=== PATIENT | male | born 1955 | race Caucasian/White ===

== ENCOUNTER 2025-06-17 12:32 | Outpatient (AMB) | payer MEDICARE, SELFPAY ==
--- OUTSIDE RECORDS SUMMARY | 2024-12-29 04:57 | XMS_ITS ---
Author Organization [facility] Address [address] [place], [place] [id number] Care Team Providers Care Surveying Crew Rodman Name Role Phone NANCY RICARDO Primary Care Provider [phone] REASON FOR VISIT refill MEDICATIONS Medication SIG (Take, Route, Fr equency, Duration) Notes Start Date End Date Status Crestor 10 MG 1 tablet Orally Once a day for 90 days 12/29/2024 Active Mounjaro 7.5 MG/0.5ML as directed Subcut aneous once a week for 30 days 2024 Active Encounters Encounter Location Date Provider Diagnosis [facility] [address] [place] [address] 12/29/2024 RICARDO CRUZ PLAN OF TREATMENT Medication Medication Name Sig Start Date Stop Date Notes Crestor 10 MG 1 tablet Orally Once a day for 90 days 12/29/2024 Mounjaro 7.5 MG/0.5ML as directed Subcut aneous once a week for 30 days 2024 Next Appt Details Provider Name:RICARDO MARTINEZ, 07/14/2025 01:00:00 PM, [address] [place], [address],
--- OUTSIDE RECORDS SUMMARY | 2025-01-06 04:27 | XMS_ITS ---
Author Organization [facility] Address [address] [place], [place] [id number] Care Team Providers Care Harness Worker Name Role Phone RICARDO CRUZ Primary Care Provider [phone] REASON FOR VISIT (H)(2) (PHONE) Encounters Encounter Location Date Provider Diagnosis [facility] [address] [place] [address] 01/06/2025 RICARDO CRUZ PLAN OF TREATMENT Next Appt Details Provider Name:RICARDO MARTINEZ, 07/14/2025 01:00:00 PM, [address] [place], [address],
--- OUTSIDE RECORDS SUMMARY | 2025-01-06 13:07 | XMS_ITS ---
Author Organization [facility] Address [address] [place], [place] [phone] Care Team Providers Care Government Affairs Fellow Name Role Phone RICARDO CRUZ Primary Care Provider Encounters Encounter Location Date Provider Diagnosis [facility] [address] [place] [address] 01/06/2025 RICARDO CRUZ PLAN OF TREATMENT Next Appt Details Provider Name:RICARDO MARTINEZ, 07/14/2025 01:00:00 PM, [address] [place], [address],
--- OUTSIDE RECORDS SUMMARY | 2025-01-06 13:08 | XMS_ITS ---
Author Organization [facility] Address [address] [place], [place] [id number] Care Team Providers Care Sports Development Officer Name Role Phone NANCY RICARDO Primary Care Provider [phone] REASON FOR REFERRAL Reason Referral to Dr. Ning colin for CAT scan showing adenopathy Diagnosis 1 Abnormal computerize d axial tomography of chest (R93.89) Referral Organization [facility] Referring Provider First Name RICARDO Referring Provider Last Name NANCY Referring Provider Speciality Internal M edicine Referred Provider HARISH MOREIRA Referred Provider Specialty Pulmonary [facility], [address] [place] [address], [address] [place] [address], P# [phone], F# [phone], Pema OROPEZA NE 02/10/2025 02:38:49 PM > faxed referral to Dr Moreira, f: [phone] Referral Priority Routine REASON FOR VISIT ct PROBLEMS Problem Type ICD Code Onset Dates Problem Status W/U Status Risk SNOMED Code Notes Problem Abnormal computerized axial tomography of chest (R93.89) Active confirmed [id number] Encounters Encounter Location Date Provider Diagnosis [facility] [address] [place] [address] 01/06/2025 RICARDO CRUZ Abnormal computerize d axial tomography of chest R93.89 ASSESSMENTS Encounter Date Diagnosis Assessment Notes Treatment Notes Treatment Clinical Notes Section Notes 01/06/2025 Abnormal computerized axial tomography of chest (ICD-10 - R93.89) PLAN OF TREATMENT Referrals Referral Date Details Referral to Dr. Ning colin for CAT scan showing adenopathy , HARISH MOREIRA Next Appt Details Provider Name:RICARDO MARTINEZ, 07/14/2025 01:00:00 PM, [address] [place], [address], Consultation Request Notes Referral Date Referring Provider Referred Provider Not es 01/06/2025 RICARDO CRUZ, HARISH Woody l to Dr. Moreira for CAT scan showing adenopathy
--- OUTSIDE RECORDS SUMMARY | 2025-01-12 08:33 | XMS_ITS ---
Author Organization [facility] Address [address] [place], [place] [phone] Care Team Providers Care Pacu Nurse Name Role Phone RICARDO CRUZ Primary Care Provider [phone] Gracia office / CT Encounters Encounter Location Date Provider Diagnosis [facility] [address] [place] [address] 01/12/2025 RICARDO CRUZ PLAN OF TREATMENT Next Appt Details Provider Name:RICARDO MARTINEZ, 07/14/2025 01:00:00 PM, [address] [place], [address],
--- OUTSIDE RECORDS SUMMARY | 2025-01-14 06:37 | XMS_ITS ---
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 [address] [place] [address] 01/14/2025 RICARDO CRUZ PLAN OF TREATMENT Next Appt Details Provider Name:RICARDO MARTINEZ, 07/14/2025 01:00:00 PM, [address] [place], [address],
--- OUTSIDE RECORDS SUMMARY | 2025-02-03 04:33 | XMS_ITS ---
Author Organization [facility] Address [address] [place], [place] [phone] Care Team Providers Care Support Clerk Name Role Phone RICARDO CRUZ Primary Care Provider REASON FOR VISIT Fax Info Encounters Encounter Location Date Provider Diagnosis [facility] [address] [place] [address] 02/03/2025 RICARDO CRUZ PLAN OF TREATMENT Next Appt Details Provider Name:RICARDO MARTINEZ, 07/14/2025 01:00:00 PM, [address] [place], [address],
--- OUTSIDE RECORDS SUMMARY | 2025-02-10 06:30 | XMS_ITS ---
Author Organization [facility] Address [address] [place], [place] [phone] Care Team Providers Care Aircraft Cleaner Name Role Phone RICARDO CRUZ Primary Care Provider REASON FOR VISIT (3) insurance letter Encounters Encounter Location Date Provider Diagnosis [facility] [address] [place] [address] 02/10/2025 RICARDO CRUZ PLAN OF TREATMENT Next Appt Details Provider Name:RICARDO MARTINEZ, 07/14/2025 01:00:00 PM, [address] [place], [address],
--- OUTSIDE RECORDS SUMMARY | 2025-02-10 06:34 | XMS_ITS ---
Author Organization [facility] Address [address] [place], [place] [phone] Care Team Providers Care Bowling Ball Finisher Name Role Phone RICARDO CRUZ Primary Care Provider REASON FOR VISIT Losartan refill/low BP MEDICATIONS Medication SIG (Take, Route, Frequency, Duration) Notes Start Date End Date Status Losartan Potassium 50 MG 1 tablet Orally Once a day for 90 days Active Encounters Encounter Location Date Provider Diagnosis [address] [address] 02/10/2025 RICARDO CRUZ PLAN OF TREATMENT Medication Medication Name Sig Start Date Stop Date Notes Losartan Potassium 50 MG 1 tablet Orally Once a day for 90 days Next Appt Details Provider Name:RICARDO MARTINEZ, 07/14/2025 01:00:00 PM, [address] [place], [address],
--- OUTSIDE RECORDS SUMMARY | 2025-02-10 06:41 | XMS_ITS ---
Author Organization [facility] Address [address] [place], [place] [id number] Care Team Providers Care Rod Pointer Name Role Phone RICARDO CRUZ Primary Care Provider REASON FOR VISIT Dr. Moreira referral Encounters Encounter Location Date Provider Diagnosis [facility] [address] [place] [address] 02/10/2025 RICARDO CRUZ PLAN OF TREATMENT Next Appt Details Provider Name:RICARDO MARTINEZ, 07/14/2025 01:00:00 PM, [address] [place], [address],
--- NOTE | 2025-06-17 12:48 | MHC.OFFVIS ---
Vital Signs 06/17/25 12:53 Height 5 ft 9 in Weight 203 lb 14.841 oz BMI 30.1 BP 148/78 H Blood Pressure Location Lt brachial Position Sitting Pulse 67 Pulse Source Pulse Oximeter Pulse Oximetry (%) 96 Oxygen Delivery Method Room Air Intake Visit Reasons: Abnormal CT scan On Site Nurse Required: No Accompanied by: Self / Same As Patient Allergies No Known Allergies Allergy (Verified 06/17/25 12:53) HPI Comments Details: The patient is here for pulmonary evaluation. The patient is a 70-year-old gentleman for an abnormal CT scan. Apparently he was in his usual state health until back in [place] few years back he did undergo a cardiac CT of the chest. The patient was still that some abnormalities were noted. He then followed up with his primary care recently and did undergo over the summer a CT scan of the chest. The CAT scan report was available to us demonstrating lymphadenopathy primarily in the mediastinum. Demonstrating his largest lymph node 1.7 cm. It does not appear that his previous CAT scan was compared to this 1. The patient does not have any evidence of any parenchymal disease or nodular densities that were documented. Overall he is doing good he stays active riding his bike. Denies any respiratory limitations. 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 Denies any other exposure to inorganic dust. He denies any weight loss or night sweats he denies any pleuritis. Overall he feels okay. Will have him undergo blood work. The patient can be assess for different etiologies that can result in the lymphadenopathy. But he understands the lymph nodes although not significantly large need to be followed. If they do increasing size that would have to be sampled. I did give him the option of getting a CAT scan here or CAT scan in [place] when he goes there. But at this point will get the blood work and have the blood work decide for us since he is asymptomatic. REPLACED BY [facility] Medical History (Updated 06/17/25 @ 13:24 by Cylde Moreira MD) Lymphadenopathy, mediastinal Social History (Updated 06/17/25 @ 12:54 by Di Ellis CMA) Patient Tobacco Use Status: Never used Tobacco Review of Systems Const Denies fever(s), Denies night sweats and Denies weight loss Eyes Reports no additional complaints ENT Reports no additional complaints Card Denies chest pain, Denies dyspnea and Denies dyspnea on exertion Resp Denies dyspnea, Denies dyspnea on exertion and Denies wheezing GI Reports no additional complaints Musc Reports no additional complaints Skin/Breast Denies rash Neuro Reports no additional complaints Jake/Lymph Reports no additional complaints Aller/Immun Denies wheezing Physical Exam Vital Signs: Last Vital Signs Pulse 67 06/17/25 12:53 BP 148/78 H 06/17/25 12:53 Pulse Ox 96 06/17/25 12:53 Oxygen Delivery Method Room Air 06/17/25 12:53 BMI result Body Mass Index 30.1 Const General: comfortable HEENT Head: Yes normocephalic Neck Neck: Yes no lymphadenopathy and Yes supple Chest Chest palpation & inspection: normal inspection of the chest Resp Effort & Inspection: normal respiratory effort Auscultation: clear to auscultation bilaterally Cardio Heart sounds: S1 normal heart sound present and S2 normal heart sound present GI Palpation (GI): Soft to palpation Skin General skin exam: no rashes or lesions noted Extrem General: Yes no clubbing, cyanosis or edema Assessment & Plan Assessment & Plan (1) Lymphadenopathy, mediastinal: Code(s): R59.0 - Localized enlarged lymph nodes Category: Medical Plan Mediastinal LN. Would need to review initial CT chest to assess for any progression of the LN. Also need to assess for hilar involvement. Clinically doing well. REC: Bloodwork, if abnormal will request CT chest soon. If bloodwork is stable then ok for him to wait till July to get a CT chest in [place]. F/U Spring 2025 Orders: Orders Lactate Dehydrogenase 06/17/25 R59.0 - Localized enlarged lymph nodes Liver Panel 06/17/25 R59.0 - Localized enlarged lymph nodes Immunoglobulin G Subclasses 06/17/25 R59.0 - Localized enlarged lymph nodes Hypersensitive Pneumonitis Prf 06/17/25 R59.0 - Localized enlarged lymph nodes, R91.8 - Other nonspecific abnormal finding of lung field Complete Blood Count Auto Diff 06/17/25 R59.0 - Localized enlarged lymph nodes Erythrocyte Sedimentation Rate 06/17/25 R59.0 - Localized enlarged lymph nodes Angiotensin Converting Enzyme 06/17/25 R59.0 - Localized enlarged lymph nodes Basic Metabolic Panel 06/17/25 R59.0 - Localized enlarged lymph nodes Immunoglobulin E 06/17/25 R59.0 - Localized enlarged lymph nodes Coding Level of Care Code New Pt Level 4 (28699) Diagnoses Lymphadenopathy, mediastinal R59.0 Time Spent (min) 40
--- OUTSIDE RECORDS SUMMARY | 2025-06-17 12:51 | XMS_ITS | Encounter Summary ---
Author Organization [facility] Address [address] [place] [address] Care Team Providers Care Clearance Rep Name Role Phone Seb Carroll MD Primary Care Provider + [phone] Encounter Details Date Type Department Care Team (Late st Contact Info) Description 07/03/2022 Scanned Document [facility] [address] [place] [phone] Carlee Medrano MD [address] [place], [place] [phone] Social History Tobacco Use Types Packs/Day Years Used Date Smoking Tobacco: Never Smokeless Tobacco: Never Alcohol Use Standard Drinks/Week Comments Yes 0 (1 standard drink = 0.6 oz pur e alcohol) social/occasional Sex and Gender Information Value Date Recorded Sex Assigned at Not on file Legal Sex Male 12:21 PM EDT Gender Identity Not on file Sexual Orientation Not on file COVID-19 Exposure Response Date Recorded In the last 10 days, have yo u been in contact with someone who was confirmed or suspected to have Coronavirus/COVID-19? No / Unsure 07/05/2022 8:55 AM EST documented as of this encounter Plan of Treatment Not on file documented as of this encounter Procedures Procedure Name Priority Date/Time Associated Diagnosis Comments PATHOLOGY REPORT 07/03/2022 12:0 0 AM EST documented in this encounter Results * PATHOLOGY REPORT (07/03/2022 12:00 AM EST) Carlee Medrano MD PATHOLOGY/CYTOLOGY ORDERABLES Fi nal Result documented in this encounter Visit Diagnoses Not on filedocumented in this encounter Care Teams Clearance Rep Relationship Specialty Start Date End Date Seb Carroll MD PCP - General Internal Medicine 04/11/22 documented as of this encounter
--- OUTSIDE RECORDS SUMMARY | 2025-06-17 12:51 | XMS_ITS ---
Author Name [facility] Organization Unknown Problems Problem Status Onset Date Problem Type Date of Resoluti on Source Dysphagia, unspecified type active EncounterDiagnosisAct CCT History of colon polyps active EncounterDiagnosisAct CCT Encounters Encounter Type Encounter Reason Primary Diagnosis Location Date Ambulatory Personal history of colonic polyps [facility] 07/05/2022 Ambulatory Personal history of colonic polyps [facility] 04/11/2022 Care Team Organization Name Specialty Phone Email Start Date End [facility] 05/30/2023 024 [facility] 04/19/2023 024 [facility] RICARDO CRUZ Primary [facility] 04/11/2022 022 [facility] RICARDO CRUZ Primary Care 04/11/2022
--- OUTSIDE RECORDS SUMMARY | 2025-06-17 12:51 | XMS_ITS | Continuity of Care Document ---
Author Organization [facility] Address [address] [place] [address] Phone [phone] Social History Type Date Description Comments Sex Male Sex Unknown Medical Devices Description No Information Available Encounters Description No Information Available Assessments Description No Information Available Plan of Treatment No Information Available Functional Status Description No Information Available Mental Status Description No Information Available Referrals Description No Information Available
--- OUTSIDE RECORDS SUMMARY | 2025-06-17 12:52 | XMS_ITS | Encounter Summary ---
Author Organization [facility] Address [address] [place] [address] Care Team Providers Care Recruitment Internship Name Role Phone Seb Carroll MD Primary Care Provider + [phone] Encounter Details Date Type Department Care Team (Late st Contact Info) Description 07/05/[address] [facility] [address] [facility] [address] [place] [address] Carlee Medrano MD [address] [place] [address] Social History Tobacco Use Types Packs/Day Years [...] on file documented as of this encounter Visit Diagnoses Not on filedocumented in this encounter Care Teams Recruitment Internship Relationship Specialty Start Date End Date Seb Carroll MD PCP - General Internal Medicine 04/11/22 documented as of this encounter
--- OUTSIDE RECORDS SUMMARY | 2025-06-17 12:52 | XMS_ITS | Encounter Summary ---
Author Organization [facility] Address [address] [place] [address] Phone Care Team Providers Care Test Equipment Mechanic Name Role Phone Seb Carroll MD Primary Care Provider + [phone] Encounter Details Date Type Department Care Team (Late Contact Info) Description 04/18/2022 Telephone [facility] [address] [place] [address] Jimbo Covarrubias MD [address] [place] [address] Social History Tobacco Use Types Packs/Day Years Used Date Smoking Tobacco: Never Smokeless Tobacco: Never Alcohol Use Standard Drinks/Week Comments Not Currently 0 (1 standard drink = 0.6 oz pur e alcohol) Sex and Gender Information Value Date Recorded Sex Assigned at Not on file Legal Sex Male 5:12 PM EST Gender Identity Not on file Sexual Orientation Not on file COVID-19 Exposure Response Date Recorded In the last 10 days, have yo u been in contact with someone who was confirmed or suspected to have Coronavirus/COVID-19? No / Unsure 04/16/2022 8:16 AM EDT documented as of this encounter Miscellaneous Notes * Telephone Encounter - Martha Ocampo - 04/18/2022 11:44 AM EDT Pt called, he would like to review the results of his 24 hr bom with you. Please call him back at [phone] Thank you documented in this encounter Plan of Treatment Upcoming Encounters Date Type Department Care Team (Late st Contact Info) Description 01/04/2026 8:00 AM EDT Office Visit [facility] [address] [address] Aleshia Stubbs ARNP [address] [address] documented as of this encounter Visit Diagnoses Not on filedocumented in this encounter Care Teams Test Equipment Mechanic Relationship Specialty Start Date End Date Seb Carroll MD [address] [place] [address] PCP - General Internal Medicine 07/03/21 documented as of this encounter
--- OUTSIDE RECORDS SUMMARY | 2025-06-17 12:52 | XMS_ITS | Patient Health Record ---
Author Organization [facility] Address [address], [place] [id number] Care Team Providers Care Assistant Professor Of Radiology Name Role Phone RICARDO CRUZ Primary Care Provider [phone] ALLERGIES No Known Allergies REASON FOR REFERRAL Reason Referral to Dr. Ning colin for CAT scan showing adenopathy Diagnosis 1 Abnormal computerize d axial tomography of chest (R93.89) Referral Organization [facility] As sociates Referring Provider First Name RICARDO Referring Provider Last Name NANCY Referring Provider Speciality Internal M edicine Referred Provider HARISH MOREIRA Referred Provider Specialty Pulmonary [facility] General Notes Pul[facility]ology [facility], [address] [place] [address], [address] [place] [address], P# [phone], F# [phone], Pema OROPEZA ND 02/10/2025 02:38:49 PM > faxed referral to Dr Moreira, f: [phone] Referral Priority Routine MEDICATIONS Medication SIG (Take, Route, Frequency, Duration) Notes Start Date End Date Status Losartan Potassium 100 MG 1 tablet Orall y Once a day for 90 days 02/10/2023 Active Crestor 10 MG 1 tablet Orally Once a day for 90 days 12/29/2024 Active Losartan Potassium 50 MG 1 tablet Orally Once a day for 90 days Active Mounjaro 7.5 MG/0.5ML as directed Subcut aneous once a week for 30 days 2024 Active IMMUNIZATIONS Vaccine Route Administration Date Status Comme nts Influenza, Fluzone HD 65+ IM Intramuscular 04/29/2023 Admi nistered SOCIAL HISTORY Tobacco Use: Social History Observation Description Date Details (start date - stop date) Never Smoker NA - NA Sex Assigned At : Social History Observation Description Sex Assigned At Unknown Smoking Question Answer Notes Are you a: never smoker PROBLEMS Problem Type ICD Code Onset Dates Problem Status W/U Status Risk SNOMED Code Notes Problem PRSNL HST COLONIC POLYPS (V12.72) Active confirmed History of p olyp of colon (872181542) Problem FAM HX COLONIC POLYPS (V18.51) Active confirmed Family histo ry of polyp of colon (152664375) Problem Essential (primary) hypertension (I10) Active confirmed Essential hypertension (34881296) Problem Thrombocytopenia (D69.6) Active confirmed 386452277 Problem Personal history of colonic polyps (Z86.010) Active confirmed 396389056 Problem Disorder of lipoprotein metabolism, unspecified (E78.9) Active confirmed Disorder of lipoprotein storage and metabolism (disorder) (549944556) Problem Gout, unspecified cause, unspecified chronicity, unspecified site (M10.9) Active confirmed 13878212 Problem Benign prostatic hyperplasia, unspecified whether lower urinary tract symptoms present (N40.0) Active confirmed 898751698 Problem Abnormal computerized axial tomography of chest (R93.89) Active confirmed 37358639228299854 VITAL SIGNS Blood pressure diastolic 76 mm Hg 12/29/2024 Height 68.75 in 12/29/2024 Blood pressure systolic 126 mm Hg 12/29/2024 Weight 201 lbs 12/29/2024 BMI 29.90 kg/m2 12/29/2024 Encounters Encounter Location Date Provider Diagnosis [address] [address] 07/07/2024 RICARDO CRUZ Essential (primary) hypertension I10 ; Disorder of lipoprotein metabolism, unspecified E78.9 ; Gout, unspecified cause, unspecified chronicity, unspecified site M10.9 ; History of prediabetes Z87.898 and History of nocturia Z87.[address] [address] 07/13/2024 RICARDO CRUZ [address] [address] 08/26/2024 RICARDO CRUZ [address] [address] 12/29/2024 RICARDO CRUZ Essential (primary) hypertension I10 ; Disorder of lipoprotein metabolism, unspecified E78.9 ; Gout, unspecified cause, unspecified chronicity, unspecified site M10.9 ; Pituitary adenoma D35.2 ; Nocturia R35.1 and Lymphadenopathy R59.1 [facility] [address] [place] [address], [place] [address] 12/29/2024 RICARDO [facility] [address] [place] [address], [place] [address] 01/06/2025 RICARDO NANCY [facility] [address] [place] [address], [place] [address] 01/06/2025 RICARDO [facility] [address] [place] [address], [place] [address] 01/06/2025 RICARDO CRUZ Abnormal computerize d axial tomography of chest R93.89 [facility] [address] [place] [address], [place] [address] 01/12/2025 RICARDO [facility] [address] [place] [address], [place] [address] 01/14/2025 RICARDO NANCY [facility] [address] [place] [address], [place] [address] 02/03/2025 RICARDO [facility] [address] [place] [address], [place] [address] 02/10/2025 RICARDO CRUZ [facility] [address] [place] [address], [place] [address] 02/10/[address] [place] [address] 02/10/2025 RICARDO CRUZ ASSESSMENTS Encounter Date Diagnosis Assessment Notes Treatment Notes Treatment Clinical Notes Section Notes 01/06/2025 Abnormal computerized axial tomography of chest (ICD-10 - R93.89) 12/29/2024 Disorder of lipoprotein metabolism, unspecified (ICD-10 - E78.9) LDL goal less than 100 less than 70 optimally. He has a mildly abnormal coronary calcium score I recommend statin he would prefer to avoid statins. After discussion he agrees to Crestor 10 mg Friday we will recheck labs in 6 weeks 12/29/2024 Essential (primary) hypertension (ICD-10 - I10) Blood pressure stable well-controlled continue present medications. Labs from [place] reviewed all normal. Follow-up 6 months no added salt diet continued weight loss 07/07/2024 Disorder of lipoprotein metabolism, unspecified (ICD-10 - E78.9) Had issues with simvastatin. We discussed possibly trying an every other day regimen of rosuvastatin. First we will get a lipid profile check total cholesterol LDL with goal being less than 200 and less than 100 LDL 07/07/2024 Essential (primary) hypertension (ICD-10 - I10) Recheck blood pressure normal. Therefore no change in therapy. Recommend another 20 pound weight loss. Continue with Mounjaro. Walk 30 minutes a day. 12/29/2024 Gout, unspecified cause, unspecified chronicity, unspecified site (ICD-10 - M10.9) No symptoms check a uric acid level 07/07/2024 Gout, unspecified cause, unspecified chronicity, unspecified site (ICD-10 - M10.9) Stable present time we will check uric acid level goal less than 6.0 07/07/2024 History of prediabetes (ICD-10 - Z87.898) Continue with Mounjaro check A1c check blood sugar continue with weight loss 12/29/2024 Pituitary adenoma (ICD-10 - D35.2) MRI done in [place] reviewed stable from 2020. Recommend follow-up ophthalmology [facility]. Neurologically intact check prolactin 07/07/2024 History of nocturia (ICD-10 - Z87.898) Physical exam PSA up-to-date recheck in 6 months 12/29/2024 Nocturia (ICD-10 - R35.1) Physical exam stable check PSA 12/29/2024 Lymphadenopathy (ICD-10 - R59.1) Set up chest CT PLAN OF TREATMENT Pending Test Test Name Order Date MRI : Brain 04/29/2023 Future Test Test Name Order Date Uric Acid-[id number] 11/27/2023 Hemoglobin [id number] 11/27/2023 Lipoprotein (a)-[id number] 11/27/2023 Lipid Panel-[id number] 11/27/2023 [id number] 11/27/2023 Next Appt Details Provider Name:RICARDO MARTINEZ, 07/14/2025 01:00:00 PM, [address] [place], [address], Insurance Providers Payer Name Payer Address Payer Phone Subscriber Number Group Number Insured Name Patient Relationship to Insured Coverage Start Date Coverage End Date [facility] [address] [address] [place] [id number] ARNOLDO CUMMINGS Self - patient is the insured [address] [employer] [address] [place] [address] [phone] [id number] ARNOLDO CUMMINGS Self - patient is the insured 1 MEDICAL (GENERAL) HISTORY Medical History History ICD Code hypertension depression anxiety small mass in pituitary gland -pituitary adenoma Colonoscopy 06/16/2017 - Sig tics. Path: Tubular adenoma in the cecum. Sessile serrated adenoma/polyp, without dysplasia in the L colon Lumbar decompression Gout COVID x1 Immunization status Shingrix 2 shots Zostavax x1 Pneumovax x1 Tdap 2020 flu shot q. year COVID 2 shots MRI of the brain March 29 24 mm pituitary mass consistent with adenoma unchanged from prior readings Renal ultrasound 2019 small bilateral re nal cysts Colonoscopy June 2022 Dr Laurita Medrano in [place]. Multiple polyps. Repeat colonoscopy June 2025 Exercise stress test [address] Covarrubias PSA 2.01 November 2023October for coronary c alcium score 28. Also noted some mediastinal lymph nodes Surgical History Surgery Date(Month/Year) right shoulder surgery Dr. Gonzalez 11/2016 hernia repair discectomy 2005 rotar cuff shoulder repair Hospitalization History Reason Date(Month/Year) as above
--- OUTSIDE RECORDS SUMMARY | 2025-06-17 12:52 | XMS_ITS | Encounter Summary ---
Author Organization [facility] Address [address] [place] [address] Phone Care Team Providers Care Disposal Operator Name Role Phone Seb Carroll MD Primary Care Provider + [phone] Encounter Details Date Type Department Care Team (Late st Contact Info) Description 04/16/2022 Documentation Only [facility] [address] [place] [address] Jimbo Covarrubias MD [address] [place] [address] Social History Tobacco Use Types Packs/Day Years [...] AM EDT documented as of this encounter Plan of Treatment Upcoming Encounters Date Type Department Care Team (Late st Contact Info) Description 01/04/2026 8:00 AM EDT Office Visit [facility] [address] [address] Aleshia Stubbs ARNP [address] [facility] [address] [place] [address] documented as of this encounter Visit Diagnoses Not on filedocumented in this encounter Care Teams Disposal Operator Relationship Specialty Start Date End Date Seb Carroll MD [address] [place] [address] PCP - General Internal Medicine 07/03/21 documented as of this encounter
--- OUTSIDE RECORDS SUMMARY | 2025-06-17 12:52 | XMS_ITS | Clinical Summary ---
Author Organization [facility] Address [address] [place] [address] Care Team Providers Care Clinical Dermatologist Name Role Phone Seb Carroll MD Primary Care Provider [phone] Social History Tobacco Use Types Packs/Day Years Used Date Smoking Tobacco: Never Assessed Sex and Gender Information Value Date Recorded Sex Assigned at Not on file Legal Sex Male 6:12 AM EST Gender Identity Not on file Sexual Orientation Not on file Plan of Treatment Health Maintenance Due Date Last Done Comments Colorectal Cancer Screening: Colonoscopy 1955 DTaP,Tdap,and Td Vaccines (1 - Tdap) 1975 Pneumococcal Vaccine: 50+ Ye ars (1 of 1 - PCV) 2006 Zoster Vaccines (1 of 2) 2006 Depression Screening 07/28/2024 Abdominal Aortic Aneurysm (A AA) Screen 01/13/2025 Cholesterol Screening (Lipid Panel) 01/13/2025 Falls Risk Assessment 01/13/2025 Hepatitis C Screening 01/13/2025 Social Influencers of Health Screening 01/13/2025 COVID-19 Vaccine (1 - 2024-2 6 season) 2025 Influenza Vaccine (#1) 2025 RSV Immunization Adult Patie nts (1 - 1-dose 75+ series) 2031 HIB Vaccines Aged Out No longer eligi ble based on patient's age to complete this topic HPV Vaccines Aged Out No longer eligi ble based on patient's age to complete this topic Hepatitis A Vaccines Aged Out No long er eligible based on patient's age to complete this topic Hepatitis B Vaccines Aged Out No long er eligible based on patient's age to complete this topic IPV Vaccines Aged Out No longer eligi ble based on patient's age to complete this topic MMR Vaccines Aged Out No longer eligi ble based on patient's age to complete this topic Meningococcal ACWY Vaccine Aged Out N o longer eligible based on patient's age to complete this topic Meningococcal B Vaccine Aged Out No l onger eligible based on patient's age to complete this topic RSV Immunization Patients Un eliza 20 months Aged Out No longer eligible b ased on patient's age to complete this topic Varicella Vaccines Aged Out No longer eligible based on patient's age to complete this topic Care Teams Clinical Dermatologist Relationship Specialty Start Date End Date Seb Carroll MD PCP - General Internal Medicine 02/21/17
--- OUTSIDE RECORDS SUMMARY | 2025-06-17 12:52 | XMS_ITS | Clinical Summary ---
Author Organization [facility] Address [address] [place] [address] Care Team Providers Care Childbirth And Infant Care Teacher Name Role Phone Seb Carroll MD Primary Care Provider + [phone] Allergies No known active allergies Medications losartan (COZAAR) 50 MG tablet Take 50 mg by mouth daily. 01/16/2022 Active bisacodyl (DULCOLAX) 5 MG EC tabletIndicatio ns:History of colon polyps Take 4 tablets (20 mg total) by mouth once. Take prior to starting to drink prep, on day prior to colonoscopy. 4 tablet 04/11/2022 Active amLODIPine (NORVASC) 10 MG tablet Take 10 mg by mouth daily. Active Active Problems No known active problems Family History Medical History Relation Name Comments Colon cancer Neg Hx Colon polyps Neg Hx Esophageal cancer Neg Hx Stomach cancer Neg Hx Social History Tobacco Use Types Packs/Day Years Used Date Smoking Tobacco: Never Smokeless Tobacco: Never Tobacco Cessation:Counseling Given: Not Answered Alcohol Use Standard Drinks/Week Comments Yes 0 (1 standard drink = 0.6 oz pur e alcohol) social/occasional Sex and Gender Information Value Date Recorded Sex Assigned at Not on file Legal Sex Male 12:21 PM EDT Gender Identity Not on file Sexual Orientation Not on file Last Filed Vital Signs Vital Sign Reading Time Taken Comments Blood Pressure 128/74 07/05/2022 10:40 AM EST Pulse 73 07/05/2022 10:40 AM EST Temperature 36.7 C (98 F) 07/05/2022 10:10 AM EST Respiratory Rate 18 07/05/2022 10:40 AM EST Oxygen Saturation 96% 07/05/2022 10:40 AM EST Inhaled Oxygen Concentration - - Weight 99.8 kg (220 lb) 07/01/2022 4:22 PM EST Height 175.3 cm (5' 9 ) 04/11/2022 1:14 PM EDT Body Mass Index 32.49 04/11/2022 1:14 PM EDT Plan of Treatment Health Maintenance Due Date Last Done Comments Advance Care Planning 1955 Hepatitis C Virus Screening 1955 DTaP/Tdap/Td Vaccines (1 - Tdap) 1975 Pneumococcal Vaccines 50+ (1 of 1 - PCV) 2006 RSV Vaccine 50 years and older and Patients (1 - Risk 50-74 years 1-dose series) 2006 Zoster (Shingles) Vaccine (1 of 2) 2006 Influenza Vaccine 02/25/2025 04/21/2015 COVID-19 Vaccine (3 - 2024-2 6 season) 2025 02/04/2022, 06/22/2021 Colonoscopy 07/05/2032 07/05/2022 Hepatitis B Vaccines Aged Out No long er eligible based on patient's age to complete this topic Insurance MEDICARE MEDICARE Care Teams Childbirth And Infant Care Teacher Relationship Specialty Start Date End Date Seb Carroll MD PCP - General Internal Medicine 04/11/22
--- OUTSIDE RECORDS SUMMARY | 2025-06-17 12:52 | XMS_ITS | Clinical Summary ---
Author Organization [facility] Address [address] [address] Phone Care Team Providers Care Radar Systems Engineer Name Role Phone Seb Carroll MD Primary Care Provider + [phone] Allergies No known active allergies Medications losartan (COZAAR) 50 MG tabletIndication s:Hypertension Take 75 mg by mouth 1 (one) time each day Active rosuvastatin (CRESTOR) 10 MG tablet Take 10 mg by mouth every other day 12/29/2024 Active Mounjaro 5 MG/0.5ML solution auto-injector 12/02/2024 Activ e Active Problems Problem Noted Date Diagnosed Date 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 Hypertension 02/26/2022 Chronic kidney disease 02/26/2022 Simple renal cyst 02/26/2022 Family History Medical History Relation Comments Diabetes Brother Hypertension Brother Dementia Father Diabetes Father Hypertension Father Cancer Sister Relation Status Comments Brother Father Mother Sister Social History Tobacco Use Types Packs/Day Years [...] Reading Time Taken Comments Blood Pressure 128/74 01/04/2025 1:54 PM EDT Pulse 62 01/04/2025 1:54 PM EDT Temperature - - Respiratory Rate - - Oxygen Saturation - - Inhaled Oxygen Concentration - - Weight 89.8 kg (198 lb) 01/04/2025 1:54 PM EDT Height - - Body Mass Index - - Plan of Treatment Upcoming Encounters Date Type Department Care Team (Late st Contact Info) Description 01/04/2026 8:00 AM EDT Office Visit [facility] [address] [facility] [address] [place] [address] Aleshia Stubbs ARNP [address] [address] Health Maintenance Due Date Last Done Comments Pneumococcal Vaccine: 50+ Ye ars (1 of 2 - PCV) 1975 Colorectal Cancer Screening: Annual FOBT 2005 Colorectal Cancer Screening: Colonoscopy 2005 Colorectal Cancer Screening: Sigmoidoscopy 2005 Influenza Vaccine (#1) 2025 Hepatitis B Vaccine Aged Out No longe r eligible based on patient's age to complete this topic Insurance Medicare Care Teams Radar Systems Engineer Relationship Specialty Start Date End Date Seb Carroll MD [address] [place] [address] PCP - General Internal Medicine 07/03/21
[2025-06-17 12:53] VITALS: BP 148/78; PULSE 67; O2SAT 96; BMI 30.1
== END 2025-06-17 13:29 | disposition home or self-care (01) ==
LOC: HO.HPS 12:33
PROVIDERS: PCP Internal Medicine; Referring Provider Internal Medicine; Visit Provider Hospitalist
DX: R59.0 Localized enlarged lymph nodes (principal)
CPT/HCPCS: 99204

== ENCOUNTER → 2025-06-17 12:32 | Outpatient (BNVA) | payer MEDICARE, SELFPAY | PROVIDERS: PCP Internal Medicine; Referring Provider Internal Medicine; Visit Provider Hospitalist | DX: R59.0 Localized enlarged lymph nodes (principal); R93.89 Abnormal findings on diagnostic imaging of other specified body structures | CPT/HCPCS: 99202 ==